=== PATIENT | female | born 1980 | race Caucasian/White ===

== ENCOUNTER 2018-11-22 17:30 | Emergency (ER) | payer OTHER ==
[~2018-11-22] VITALS: Ht 170.2 cm; Wt 65.8 kg
--- OUTSIDE RECORDS SUMMARY | 2018-11-22 17:33 | XMS REPORT | Summary of Care ---
Author Organization Unknown Address Unknown Phone Unavailable Encounter [facility]([place]EL[place]) [id number] Date(s): 05/30/14 - 06/28/[address] Discharge Disposition: Home Physician Attending: Joaquín Quevedo MD Physician_Referring: Joaquín Quevedo MD Reason for Visit HYPERBARIC TREATMENT Problem List Condition Effective Dates Status Health Status Informant Back pain(Confirmed) Active Allergies, Adverse Reactions, Alerts Substance Reaction Severity Status NKDA Active Medications No data available for this section Medications Administered During Your Visit No data available for this section Immunizations No data available for this section
--- OUTSIDE RECORDS SUMMARY | 2018-11-22 17:33 | XMS REPORT | Continuity of Care Document ---
Author Author [facility] Interface Address Unknown Phone Unavailable Problems Problem Status Onset Date Classification Date Reported Comments Source HYPERBARIC TREATMENT Active 05/25/2014 [facility] [place] Active 10/27/2011 [facility] Back pain Active Problem 06/30/2014 [facility] Medications Medication Details Route Status Patient Instructions Ordering Provider Order Date Source Allergies, Adverse Reactions, Alerts Substance Category Reaction Severity Reaction type Status Date Reported Comments Source Immunizations Immunization Date Given Site Status Last Updated Comments Source Results Order Name Results Value Reference Range Date Interpretation Comments Source Chest 2 views DX Chest 2 views DX PROCEDURE: Chest, PA and lateral radiographs, 2 views. INDICATION: Fever and cough. COMPARISON: None. FINDINGS: No pleural effusion or pneumothorax. Pectus excavatum deformity is demonstrated. This accounts for right paramediastinal density on the AP view. Lungs appear clear. No venous congestion or acute infiltrates. No consolidation. Cardiac silhouette is not enlarged. Mediastinum is otherwise unremarkable. Epidural stimulator leads overlie the mid to lower thoracic and upper lumbar spinal region. No acute bony abnormality. IMPRESSION: 1. No acute cardiopulmonary process identified. 2. Pectus excavatum deformity. SL: [id number] 10/09/2018 - - Read by: Dinesh Levy MD Dictated Date/time: 10/09/18 10:29 Electronically Signed by: Dinesh Levy MD 10/09/18 10:30 FINAL REPORT [facility] Vital Signs Vital Sign Value Date Comments Source Encounters Location Location Details Encounter Type Encounter Number Reason For Visit Attending Provider ADM Date DC Date Status Source [facility] W[facility] [id number] Joaquín Emy 05/30/2014 06/29/2014 [facility] Outpatient [id number] AGAPITO TREJO 10/09/2018 Active [facility] Procedures Procedure Code Date Perfomer Comments Source
== END 2018-11-22 18:34 | disposition home or self-care (01) ==
LOC: FSED 17:30
DX: H57.12 Ocular pain, left eye (principal); H10.212 Acute toxic conjunctivitis, left eye; T54.91XA Toxic effect of unspecified corrosive substance, accidental (unintentional), initial encounter; F17.210 Nicotine dependence, cigarettes, uncomplicated
CPT/HCPCS: 99283

== ENCOUNTER → 2023-04-23 | Day surgery (SDC) | payer BC, OTHER ==
[~2023-04-23] MED LIST: ACETAMINOPHEN 1000 MG/100 ML 100 ML IV ONE; ACETAMINOPHEN 1000 MG/100 ML IV ONE; ADDERALL 30 MG30 MG PO; CEFTRIAXONE 1 GM VIAL ONE; FENTANYL CITRATE/PF 100MCG/2 ML INJ ONE; KETOROLAC TROMETHAMINE 30 MG/ML VIAL ONE; LACTATED RINGER'S 1,000 ML ONE; LEVOTHYROXINE112 MCG PO; MIDAZOLAM HCL 2 MG/2 ML VIAL ONE; SEROQUEL50 MG PO; XANAX1 MG PO
[2023-04-23 11:16] LABS: BASOPHILS % 0.8 % (0.0-1.0); EOSINOPHILS # (AUTO) 0.3 (0.0-0.4); EOSINOPHILS % 6.3 % (0.0-6.0); HEMATOCRIT 36.4 % (34.2-44.1); HEMOGLOBIN 12.3 g/dL (12.0-16.0); LYMPHOCYTES # (AUTO) 1.3 (1.0-3.2); LYMPHOCYTES % 27.3 % (18.0-39.1); MEAN CORPUSCULAR HEMOGLOBIN 31.5 pg (28-32); MEAN CORPUSCULAR HGB CONC 33.8 g/dL (31-35); MEAN CORPUSCULAR VOLUME 93.3 fL (81-99); MONOCYTES # (AUTO) 0.6 (0.2-0.8); MONOCYTES % 11.6 % (4.4-11.3); NEUTROPHILS # (AUTO) 2.5 (2.1-6.9); NEUTROPHILS % 53.8 % (38.7-80.0); PLATELET COUNT 276 x10e3/uL (140-360); RED CELL DISTRIBUTION WIDTH 12.9 % (11.7-14.4)
[2023-04-23 14:35] VITALS: TEMP 97.1
[2023-04-23 15:20] VITALS: BP 120/85; PULSE 89; RESP 16; O2SAT 98
== END | disposition home or self-care (01) ==
LOC: OR 11:01
PROVIDERS: ATTEND Urology
DX: N20.0 Calculus of kidney (principal); Z79.899 Other long term (current) drug therapy; Z86.73 Personal history of transient ischemic attack (TIA), and cerebral infarction without residual deficits
CPT/HCPCS: 36415; 50590; 71046; 74018; 81025; 85025; 93005; J0131; J0696; J1885; J7121; J2250